=== PATIENT | female | born 1995 | race Caucasian/White ===

== ENCOUNTER 2020-02-28 17:12 | Emergency (ER) | payer SELFPAY ==
[~2020-02-28] VITALS: Ht 157.5 cm; Wt 129.3 kg
[2020-02-28 17:34] VITALS: BP 149/94
[2020-02-28] MEDS ORDERED: METH4TAB2 PO (18:23)
--- NOTE | 2020-02-28 18:24 | PHYS DOC ---
Past Medical History Past Medical History: Other Additional Past Medical Histor: PINCHED NERVE (JOJO DENNIS APRN) Past Surgical History: Other Additional Past Surgical Histo: ORAL (JOJO DENNIS APRN) Smoking Status: Current Some Day Smoker Additional Information: SMOKES ONLY ON SUNDAYS, SOCIALLY Alcohol Use: Occasionally (JOJO DENNIS APRN) General Adult EDM: Chief Complaint: BACK PAIN - NO INJURY HPI: HPI: Patient is a 24 year old female patient who presents to the ED today with 7 out of 10 bilateral low back pain radiating to the right lower extremity, symptoms began 4 days ago. Describes the pain as burning and intermittent worse on weightbearing and lifting animals at work. 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 She states she was seen at [facility] 2 days ago and was started on Flexeril and oxycodone. She states it is not relieving her pain. Denies any injuries. Denies any numbness or tingling to bilateral lower extremities. Denies any loss of bowel/bladder function. She went back to work today and states she cannot lift any of the animals. (JOJO DENNIS APRN) Review of Systems: Review of Systems: Constitutional: Denies fever or chills. [] GI: Denies abdominal pain, nausea, vomiting, bloody stools or diarrhea. [] : Denies dysuria. [] Musculoskeletal: Reports low back pain Integument: Denies rash. [] Neurologic: Denies headache, focal weakness or sensory changes. [] Psychiatric: Denies depression or anxiety. [] (JOJO DENNIS APRN) Heart Score: Risk Factors: Risk Factors: DM, Current or recent (<one month) smoker, HTN, HLP, family history of CAD, obesity. Risk Scores: Score 0 - 3: 2.5% MACE over next 6 weeks - Discharge Home Score 4 - 6: 20.3% MACE over next 6 weeks - Admit for Clinical Observation Score 7 - 10: 72.7% MACE over next 6 weeks - Early Invasive Strategies (JOJO DENNIS APRN) Allergies: Allergies: Allergies Coded Allergies Type Severity Reaction Last Updated Verified hydrocodone Allergy Unknown HALLUCINATIONS 02/28/20 Yes (JOJO DENNIS APRN) Physical Exam: PE: Constitutional: Obese patient, no acute distress, non-toxic appearance. [] Abdomen: Bowel sounds normal, soft, no tenderness, no masses, no pulsatile masses. [] Skin: Warm, dry, no erythema, no rash. [] Back: No tenderness, no CVA tenderness. [] Extremities: No tenderness, no cyanosis, no clubbing, ROM intact, no edema. [] Neurologic: Alert and oriented X 3, normal motor function, normal sensory function, no focal deficits noted. [] Psychologic: Affect normal, judgement normal, mood normal. [] (JOJO DENNIS APRN) Current Patient Data: Vital Signs: Vital Signs Date Time Temp Pulse Resp B/P (MAP) Pulse Ox O2 Delivery O2 Flow Rate FiO2 02/28/20 17:34 98.4 82 16 149/94 (112) 100 Room Air 98.4 (JOJO DENNIS APRN) EKG: EKG: [] (JOJO DENNIS APRN) Radiology/Procedures: Radiology/Procedures: [] (JOJO DENNIS APRN) Course & Med Decision Making: Course & Med Decision Making Pertinent Labs and Imaging studies reviewed. (See chart for details) This is a 24-year-old overweight patient presenting to the ED today complaining of back pain radiating to the right lower extremity symptoms for 4 days. Was already seen at at [facility] 2 days ago and started on oxycodone, and Flexeril she states is not helping with her pain. She is also requesting a note for work. She is given prescription for Medrol Dosepak encouraged to take anti-inflammatories as well. Given note for work and discharge to home. She has no cauda equina syndrome symptoms. (JOJO DENNIS APRN) Dragon Disclaimer: Dragcastro Disclaimer: This electronic medical record was generated, in whole or in part, using a voice recognition dictation system. (JOJO DENNIS APRN) Departure Departure Impression: Primary Impression: Low back pain Qualified Codes: M54.41 - Lumbago with sciatica, right side Additional Impression: Sciatica of right side Disposition: 01 DC HOME SELF CARE/HOMELESS Condition: STABLE Referrals: NO PCP (PCP) Follow-up with her primary care doctor in 1 week Patient Instructions: Back Exercises, [id number], Back Pain, Adult Additional Instructions: You were seen for back pain with sciatica. We highly recommend you consider weight loss,please do the back pain exercises as provided on your discharge paperwork, take the medicines prescribed as ordered. [facility]-up with [facility] in 1 to 2 weeks Scripts Methylprednisolone (MEDROL) 4 Mg Tab.ds.pk 1 PKG PO UD, #1 PKG Prov: JOJO DENNIS APRN 02/28/20 Attending Signature Attending Signature I have reviewed the PA/PROPOSAL LEAD WRITER's note and plan of care. I was available for consultation as needed during the patient's visit in the emergency department. I agree with the clinical impression, plan, and disposition. (RAQUEL APARICIO DO) JOJO DENNIS APRN Feb 28, 2020 18:23 RAQUEL APARICIO DO Feb 28, 2020 18:58
== END 2020-02-28 18:27 | disposition home or self-care (01) ==
LOC: ER 17:12
DX: M54.41 Lumbago with sciatica, right side (principal); F17.200 Nicotine dependence, unspecified, uncomplicated; Z88.5 Allergy status to narcotic agent
CPT/HCPCS: 99283